=== PATIENT | male | born 1970 | race Caucasian/White ===

== ENCOUNTER 2018-09-14 13:16 | Outpatient (CLI) | payer BC ==
--- NOTE | 2018-09-15 10:02 | MRI Report ---
Reason: R KNEE SIMS'S CYST, KNEE PAIN Procedure Date: 09/14/2018 Accession Number: [id number] / [id number] Procedure: MRI - Knee RT W/O CPT Code: FULL RESULT: EXAM: RIGHT KNEE MRI WITHOUT CONTRAST EXAM DATE: 09/14/2018 01:56 PM. CLINICAL HISTORY: Right knee Sims's cyst, knee pain. COMPARISON: None. TECHNIQUE: Multiplanar, multisequence T1-weighted and fluid-sensitive sequences of the knee without contrast. Other: None. FINDINGS: Bones: Marrow edema on both sides of the medial aspect of the medial compartment. Articular Cartilage: Some grade 3-4 chondromalacia is seen at the medial aspect of the medial compartment of both sides of the joint. No focal lesions are noted. Medial Meniscus: There is a small amount of free edge medial meniscus blunting present. Lateral Meniscus: The lateral meniscus is intact. Cruciate Ligaments: The anterior and posterior cruciate ligaments are intact. Collateral Ligaments: MCL is intact, slightly bowed medially. LCL is normal. Tendons: The quadriceps, patellar, semimembranosus, and popliteus tendons are unremarkable. Musculature: No edema or fatty atrophy. Other: No effusion. Multilocular moderate to large-sized popliteal cyst is 3.6 x 2.1 cm transversely. No loose bodies. Significant edema and Hoffa's fat pad. The subcutaneous tissues and fat pads are unremarkable. IMPRESSION: 1. Marrow edema on both sides of the medial aspect of the medial compartment, small amount of blunting of the free edge of the medial meniscus, this may be a small focal apical tear. Some grade 3-4 chondromalacia at the medial aspect of the medial compartment of both sides of the joint. The MCL is slightly bowed medially, otherwise unremarkable. 2. Moderate multilocular popliteal cyst measures up to 3.6 cm. Some edema and swelling is seen in Hoffa's fat pad. [facility]
== END 2018-09-14 13:17 | disposition home or self-care (01) ==
LOC: DI 13:16
PROVIDERS: ATTEND Orthopaedic Surgery
DX: M71.21 Synovial cyst of popliteal space [Baker], right knee (principal); M94.261 Chondromalacia, right knee; R60.0 Localized edema